=== PATIENT | female | born 1950 | race Caucasian/White ===

== ENCOUNTER 2020-03-09 07:40 | Day surgery (SDC) | payer OTHER ==
[~2020-03-09] VITALS: Ht 157.5 cm; Wt 70.5 kg
[~2020-03-09 07:40] MED LIST: ASPI81CH PO; ATOR20 PO; Amaryl2 MG PO; B COMPLEX FORM0.4 MG PO; BASAGLAR K100 UNIT/1 SC; CRUTCH USE; HYDACE5 PO; INSULANI SC; METF500 PO; OMEP20ER PO; PARO30 PO; RXHYDACE PO
--- NOTE | 2020-03-09 11:35 | NUR ---
PT BACK TO RECOVERY ROOM VIA [facility] AFTER PROCEDURE. PT ASLEEP, RESP EVEN AND NON-LABORED. VSS. BP ELEVATED WITH SBP IN THE 160'S, HAS BEEN ELEVATED DURING PROCEDURE PER PROCEDURAL NURSE. PT ROUSES EASILY TO VERBAL STIMULI, NEURO ASSESSMENT NORMAL AT THIS TIME.
[2020-03-09] MEDS ORDERED: CLOP75 PO (12:00)
--- NOTE | 2020-03-09 12:18 | NUR ---
PT CONTINUES TO SLEEP, RESP EVEN AND NON-LABORED. CALL LIGHT IN REACH, VSS. CONTINUES TO ROUSE EASILY TO VERBAL STIMULI.
--- NOTE | 2020-03-09 12:56 | NUR ---
PT'S DAUGHTER RAMIRO HAS BEEN CALLED AND UPDATED WITH RESULTS OF PT PROCEDURE AND PT DISCHARGE TIME.
--- NOTE | 2020-03-09 13:18 | NUR ---
1300 ASSISTED PATIENT TO TURN ON HER LEFT SIDE. RIGHT GROIN ASSESSED AND NO CHANGES. DRESSING CDI, NO BLEEDING. PEDAL PULSES UNCHANGED. NEURO CHECKS INTACT. SPEECH CLEAR AND STATES NAME, , WHERE SHE IS AND THE DAY OF THE WEEK. [employer] EQUAL. DRANK A FEW SIPAS OF COFFEE WITHOUT SPILLING OR DROOLING.
--- NOTE | 2020-03-09 14:15 | NUR ---
PT STATES SHE STILL HAS A HEADACHE, AND IS ALSO HAVIGN SOME NECK PAIN AND LIGHTHEADEDNESS. DR KELLY NOTIFIED.
--- NOTE | 2020-03-09 15:00 | NUR ---
IV DC'D, CATH INTACT. PT AND DAUGHTER GIVEN DC INSTRUCTIONS AND FOLLOW UP INFO, VERBALIZED UNDERSTANDING. PT OUT TO CAR VIA WHEELCHAIR. PT CONTINUES TO C/O SLIGHT HEADACHE, NECK PAIN, AND LIGHTHEADEDNESS AT TIME OF DISCHARGE. DR KELLY AWARE.
== END 2020-03-09 15:00 | disposition home or self-care (01) ==
LOC: MHTC 07:40
DX: I77.1 Stricture of artery (principal); M79.604 Pain in right leg; M79.605 Pain in left leg
CPT/HCPCS: 75605; 75625; 75716; 75774; 85347; 99152; 99153; A9270; C1757; C1760; C1769; C1876; C1887; C1894; C2623; C9765; J1644; J2250; J3010; J7030; Q9967

== ENCOUNTER → 2023-12-01 | Outpatient (CLI) | payer OTHER ==
[~2023-12-01] MED LIST changes: +CLOP75 PO
[2023-12-03 19:59] LABS: Adenovirus F 40/41 Not Detected (NOT DETECT); Astrovirus Not Detected (NOT DETECT); Campylobacter Sp Not Detected (NOT DETECT); Cryptosporidium Not Detected (NOT DETECT); Cyclospora Cayetanensis Not Detected (NOT DETECT); E. Coli O157 Not Detected (NOT DETECT); Entamoeba Histolytica Not Detected (NOT DETECT); Enteroaggregative E. coli-EAEC Not Detected (NOT DETECT); Enteropathogenic E. coli-EPEC Not Detected (NOT DETECT); Enterotoxigenic E. coli-ETEC Not Detected (NOT DETECT); Giardia Lamblia Not Detected (NOT DETECT); Plesiomonas Shigelloides Not Detected (NOT DETECT); Salmonella Sp Not Detected (NOT DETECT); Shiga Toxin-prod E. coli-STEC Not Detected (NOT DETECT); Shigella/Enteroin E. coli-EIEC Not Detected (NOT DETECT); Vibrio Cholerae Not Detected (NOT DETECT); Vibrio Sp Not Detected (NOT DETECT); Yersinia Enterocolitica Not Detected (NOT DETECT)
[2023-12-03 20:00] LABS: Norovirus GI/GII Detected (NOT DETECT); Rotavirus A Not Detected (NOT DETECT); Sapovirus Not Detected (NOT DETECT)
[2023-12-05 12:03] LABS: PANCREATIC ELASTASE,FECAL 170 ug/g (>=100)
[2023-12-05 12:05] LABS: CALPROTECTIN,FECAL 78 ug/g (<=49)
== END | disposition home or self-care (01) ==
LOC: LAB 15:07 → LAB SHORT 15:07
PROVIDERS: Family Medicine
DX: R19.7 Diarrhea, unspecified (principal)
CPT/HCPCS: 82653; 83993; 87507

== ENCOUNTER → 2025-02-23 | Outpatient (CLI) | payer OTHER ==
[2025-02-23 12:04] LABS: BASOPHILS ABSOLUTE AUTO 0.09 K/mm3 (0.00-0.23); BASOPHILS PERCENT AUTO 1 % (0-2); EOSINOPHILS ABSOLUTE AUTO 0.63 K/mm3 (0.00-0.68); EOSINOPHILS PERCENT AUTO 8 % (0-6); Hematocrit 37.1 % (33.0-51.0); Hemoglobin 12.7 g/dL (11.5-16.0); IMMATURE GRAN ABSOLUTE AUTO 0.03 K/mm3 (0.00-0.10); IMMATURE GRAN PERCENT AUTO 0 % (0-1); LYMPHOCYTES ABSOLUTE AUTO 1.63 K/mm3 (0.84-5.20); LYMPHOCYTES PERCENT AUTO 21 % (21-46); MONOCYTES ABSOLUTE AUTO 0.59 K/mm3 (0.16-1.47); MONOCYTES PERCENT AUTO 7 % (4-13); Mean Corpuscular HGB Conc 34.2 g/dL (31.5-36.5); Mean Corpuscular Volume 94 fL (80-100); NEUTROPHILS ABSOLUTE AUTO 5.00 K/mm3 (1.96-9.15); NEUTROPHILS PERCENT AUTO 63 % (41-73); NRBC ABSOLUTE 0.00 K/mm3 (0.00-0.02); NRBC Auto 0.0 /100 WBC (0.0-0.2); Platelet Count 278 K/mm3 (150-400); RDW Coefficient Variation 12.9 % (11.7-14.2); RDW Standard Deviation 44.9 fL (35.1-46.3)
[2025-02-23 12:22] LABS: Alanine Aminotransfer (ALT/SGP 36 U/L (12-78); Albumin, Blood 3.9 g/dL (3.4-5.0); Albumin/Globulin Ratio 1.2 (0.8-1.8); Anion Gap 6 mmol/L (3-11); Aspartate Aminotrans (AST/SGOT 21 U/L (12-37); Bilirubin, Total 0.5 mg/dL (0.1-1.0); Blood Urea Nitrogen 17 mg/dL (8-24); CHOL/HDL RATIO 2.3; CO2, Blood 30 mmol/L (21-32); Calcium, Blood 8.9 mg/dL (8.5-10.1); Chloride, Blood 102 mmol/L (98-108); Cholesterol 175 mg/dL (50-200); Creatinine, Blood 0.81 mg/dL (0.40-1.00); Globulin, Blood 3.2 g/dL (2.2-4.0); Glucose, Blood 234 mg/dL (70-99); HDL Cholesterol 76 mg/dL (>39); LDL/HDL RATIO 1.1; Low Density Lipoprotein Chol 82 mg/dL (0-110); Potassium, Blood 4.4 mmol/L (3.5-5.5); Sodium, Blood 134 mmol/L (136-145); Thyroid Stimulating Hormone 3.390 uIU/mL (0.360-4.800); Total Protein, Blood 7.1 g/dL (6.4-8.2); Triglycerides 86 mg/dL (30-160); Very Low Density Lipoprot Chol 17 mg/dL (6-32)
[2025-02-23 13:12] LABS: Creatinine, Urine Random 34.2 mg/dL (27.00-270.00)
[2025-02-23 13:14] LABS: Microalb/Creat Ratio UR, Rand 3830.41 mg/g (0.000-30.000); Microalbumin, Random Urine 1310.0 mg/L (0.000-20.000)
== END ==
LOC: LAB SHORT 08:35 → LAB 08:35
PROVIDERS: Family Medicine
DX: E11.9 Type 2 diabetes mellitus without complications (principal); Z79.899 Other long term (current) drug therapy; M85.89 Other specified disorders of bone density and structure, multiple sites
CPT/HCPCS: 80053; 80061; 82043; 82570; 84443; 85025